=== PATIENT | female | born 2000 | race Two or more races ===

== ENCOUNTER 2025-11-14 21:22 | Emergency (ER) | payer OTHER ==
[~2025-11-14] VITALS: Ht 165.1 cm; Wt 61.2 kg
[2025-11-15] MEDS ORDERED: IBU600 MG PO (01:45)
[2025-11-15 02:08] VITALS: BP 117/76; O2SAT 98
== END 2025-11-15 02:10 | disposition home or self-care (01) ==
LOC: ER 21:23
DX: S02.2XXA Fracture of nasal bones, initial encounter for closed fracture (principal); W18.39XA Other fall on same level, initial encounter; Y93.73 Activity, racquet and hand sports; Y92.89 Other specified places as the place of occurrence of the external cause; S01.22XA Laceration with foreign body of nose, initial encounter